=== PATIENT | female | born 2000 | race Caucasian/White ===

== ENCOUNTER 2019-04-25 17:22 | Emergency (ER) | payer BC, OTHER ==
[2019-04-25] MEDS ORDERED: BIRTH CONTROL (17:30)
--- NOTE | 2019-04-25 17:39 | ER Report ---
History and Physical Time Seen By MD: 17:36 Hx. of Stated Complaint: ELEVATED D DIMER. CP SINCE LAST NIGHT. HPI/ROS CHIEF COMPLAINT: chest pain HISTORY OF PRESENT ILLNESS: 19 year old female presents after having an elevated d-dimer today. She was seen by Nanette Adams NP for chest pain earlier toprudence white. Patient reports chest pain started yesterday morning when she was in the shower. She also experienced SOB and dizziness. The chest pain was intermittent throughout the day yesterday. However, she woke up this morning with the chest pain again. Nanette Adams ordered a d-dimer at her office, which was elevated, so she sent the patient to the ED. Patient reports dizziness with standing, but no current shortness of breath. She reports the chest pain is located right side of sternum. REVIEW OF SYSTEMS: Constitutional: No fevers, no appetite changes. Respiratory: Reports dyspnea as noted above. No cough. Cardiovascular: Reports chest pain as noted above. No palpitations. Gastrointestinal: No vomiting, no abdominal pain. Musculoskeletal: No back pain. Neuro: Dizziness upon standing. Allergies: Coded Allergies: shellfish derived (Verified Allergy, Intermediate, NUMBNESS IN FACE , 04/25/19) Home Meds Active Scripts Ketorolac Tromethamine (KETOROLAC TROMETHAMINE) 10 Mg Tab, 10 MG PO Q6H PRN for PAIN, #20 TAB Prov:DOUGLAS BEAR ATIF 04/25/19 Reported Medications [ Control] No Conflict Check 04/25/19 Past Medical/Surgical History No significant past medical or surgical history. Reviewed Nurses Notes: Yes Constitutional Vital Sign - Last 24 Hours 04/25/19 04/25/19 04/25/19 04/25/19 17:28 17:30 17:55 18:30 Temp 98.5 Pulse 109 102 79 Resp 20 B/P (MAP) 126/90 129/93 (105) Pulse Ox 95 95 97 O2 Delivery Room Air 04/25/19 04/25/19 04/25/19 18:45 19:00 19:15 Pulse 83 83 84 Pulse Ox 95 93 94 Physical Exam General Appearance: The patient is alert, has no immediate need for airway protection and no current signs of toxicity. Eyes: Pupils equal and round no injection. Respiratory: on palpation of chest, she has pain along right side of sternum. lungs are clear to auscultation. Cardiac: regular rate and rhythm Gastrointestinal: Abdomen is soft and non tender, no masses, bowel sounds normal. Musculoskeletal: Neck: Neck is supple and non tender. Extremities have full range of motion and are non tender. Skin: No rashes or lesions. DIFFERENTIAL DIAGNOSIS: After history and physical exam differential diagnosis was considered for pulmonary embolism, LA, anxiety, chostocondritis. Medical Decision Making Data Points Laboratory Hematology Test 04/25/19 17:47 Troponin I < 0.012 ng/ml Human Chorionic Gonadotropin, Qual Negative (NEGATIVE) Chemistry Test 04/25/19 17:47 Troponin I < 0.012 ng/ml Human Chorionic Gonadotropin, Qual Negative (NEGATIVE) EKG/Imaging EKG Interpretation 12 lead EKG: Rhythm: normal sinus rhythm with ventricular rate at 92 [place]: normal QRS: normal ST segments: normal Imaging PATIENT NAME: Mary Maher : 2000 MR: [id number] V: [id number] EXAM DATE: ORDERING PHYSICIAN: DOUGLAS BEAR TECHNOLOGIST: Location: [facility] - [place] Patient: Mary Maher : 2000 Visit/Account:[id number] Date of Sevice: 04/25/2019 CT angiogram chest with contrast Indication: Chest pain, shortness breath, elevated d-dimer. Comparison: None available. Technique: Axial CT images are obtained through the chest after administration of 75 mL Isovue 370 IV contrast. Reformatted coronal and sagittal images were reviewed as well as coronal MIP images. One of the following dose optimization techniques was utilized in the performance of this exam: automated exposure control; adjustment of the mA and/or kV according to the patient's size; or use of an iterative reconstruction technique. Specific details can be referenced in the facility's radiology CT exam operational policy. FINDINGS: No evidence of filling defect within the pulmonary vasculature to suggest pulmonary embolus. Heart is normal size without pericardial effusion. Aorta shows no aneurysm or dissection. Mediastinum and hilar regions show no enlarged lymph nodes or abnormal density. Lungs show no consolidation, pleural effusion, pneumothorax, nodule or focal interstitial opacities. Airways are clear. Bony structures show no acute fractures or aggressive bony lesions. Chest wall shows no enlarged axillary lymph nodes or masses. Limited views of the upper abdomen are unremarkable. IMPRESSION: 1. No evidence of pulmonary embolus. 2. No acute cardiothoracic abnormality ED Course/Re-evaluation ED Course Upon arrival to the ED, patient admitted to an exam room, hx and physical obtained, differentials considered. Patient presents after having an elevated d- dimer today. She was seen by Nanette Adams NP for chest pain earlier today. Patient reports chest pain started yesterday morning when she was in the shower. She also experienced SOB and dizziness. The chest pain was intermittent throughout the day yesterday. However, she woke up this morning with the chest pain again. Nanette Adams ordered a d-dimer at her office, which was elevated, so she sent the patient to the ED. Patient reports dizziness with standing, but no current shortness of breath. She reports the chest pain is located right side of sternum. On exam, heart rate and rhythm are normal, lungs are clear. On palpation of chest, she has pain along right side of sternum. IV started. Benadryl given as she is allergic to shellfish. Pulmonary angiogram ordered. EKG and troponin ordered. Nanette Adams ordered a CBC and CMP earlier today which were both normal. 50mg benadryl given for shellfish allergy. 324mg aspirin given. On pulmonary angiogram, no evidence of pulmonary embolus and no acute cardiothoracic abnormality. Discussed with patient regarding normal labs and pulmonary angiogram. Discussed with patient that this is likely a chostochondritis due to the point tenderness on her chest and negative angiogram. Will prescribe 5 days worth of toradol. Patient agrees with plan of care. Decision to Disposition Date: Apr 25, 2019 Decision to Disposition Time: 19:25 Depart Departure Latest Vital Signs Vital Signs Date Time Temp Pulse Resp B/P (MAP) Pulse Ox O2 Delivery O2 Flow Rate FiO2 04/25/19 19:15 84 94 04/25/19 17:55 129/93 (105) 04/25/19 17:28 98.5 20 Room Air Impression: Primary Impression: Costochondritis Condition: Improved Disposition: HOME OR SELF-CARE New Scripts Ketorolac Tromethamine (KETOROLAC TROMETHAMINE) 10 Mg Tab 10 MG PO Q6H PRN for PAIN, #20 TAB Prov: DOUGLAS BEAR 04/25/19 Patient Instructions: Chest Pain (ED) Additional Instructions: Please drink plenty of fluids and get plenty of rest. You may ice the area on your chest that hurts. You may take toradol every 6 hours as needed for pain. Please follow-up with your primary care provider by the end of the week. Return to the ED with any difficulty breathing, increased chest pain, or for any other concerns. DOUGLAS BEAR Apr 25, 2019 17:39
[2019-04-25] MEDS ORDERED: ASPIRIN 81 MG CHEW PO ONE (17:40)
[2019-04-25] MEDS ORDERED: diphenhydrAMINE 50 MG/ML VIAL IVP ONE (17:40)
[2019-04-25] MEDS ORDERED: IOPAMIDOL 76% 100 ML INFUS BTL 100 ML ONE ×2 (17:54→18:19)
--- NOTE | 2019-04-25 17:54 | EKG ---
FACILITY: [facility] PATIENT NAME: LEANDRA BAIRD : [id number] MR: [id number] V: [id number] EXAM DATE: ORDERING PHYSICIAN: DOUGLAS BEAR TECHNOLOGIST: MIKEY Huitron Reason : Blood Pressure : / mmHG Vent. Rate : 092 BPM Atrial Rate : 092 BPM P-R Int : 134 ms QRS Dur : 084 ms QT Int : 346 ms P-R-T Axes : 028 040 019 degrees QTc Int : 427 ms Normal sinus rhythm Normal ECG No previous ECGs available Confirmed by FLAVIO GAVIRIA ([id number]) on 04/26/2019 6:25:10 AM Referred By: Confirmed By:FLAVIO GAVIRIA
[2019-04-25 17:55] VITALS: BP 129/93
[2019-04-25] MEDS ORDERED: NS(*) 0.9% 50 ML BAG 50 ML ONE ×2 (17:55→18:19)
--- NOTE | 2019-04-25 19:16 | RADIOLOGY IMAGING REPORT ---
FACILITY: [facility] - [place] PATIENT NAME: Mary Maher : 2000 MR: [id number] V: [id number] EXAM DATE: ORDERING PHYSICIAN: DOUGLAS BEAR TECHNOLOGIST: Location: Patient: Mary Maher : 2000 Visit/Account:[id number] Date of Sevice: 04/25/2019 CT angiogram chest with contrast Indication: Chest pain, shortness breath, elevated d-dimer. Comparison: None available. Technique: Axial CT images are obtained through the chest after administration of 75 mL Isovue 370 IV contrast. Reformatted coronal and sagittal images were reviewed as well as coronal MIP images. One of the following dose optimization techniques was utilized in the performance of this exam: auto mated exposure control; adjustment of the mA and/or kV according to the patient's size; or use of an iterative reconstruction technique. Specific details can be referenced in the facility's radiology C T exam operational policy. FINDINGS: No evidence of filling defect within the pulmonary vasculature to suggest pulmonary embolus. Heart is normal size without pericardial effusion. Aorta shows no aneurysm or dissection. Mediastin um and hilar regions show no enlarged lymph nodes or abnormal density. Lungs show no consolidation, pleural effusion, pneumothorax, nodule or focal interstitial opacities. Airways are clear. Bony structures show no acute fractures or aggressive bony lesions. Chest wall shows no enlarged axi llary lymph nodes or masses. Limited views of the upper abdomen are unremarkable. IMPRESSION: 1. No evidence of pulmonary embolus. 2. No acute cardiothoracic abnormality Report Dictated By: Kevin oWng at 04/25/2019 7:04 PM Report E-Signed By: Kevin Wong at 04/25/2019 7:11 PM WSN:[id number]
[2019-04-25] MEDS ORDERED: KET10 PO (19:26)
== END 2019-04-25 19:38 | disposition home or self-care (01) ==
LOC: ER 17:30
DX: M94.0 Chondrocostal junction syndrome [Tietze] (principal)
CPT/HCPCS: 71275; 84484; 84703; 93005; 96374; 99284; J1200; J7050; Q9967

== ENCOUNTER → 2019-04-25 | Outpatient (CLI) | payer BC, OTHER ==
[~2019-04-25] MED LIST: BIRTH CONTROL; KET10 PO
[2019-04-25 14:24] LABS: PLATELET COUNT, AUTOMATED 263 K/uL (150-450)
--- NOTE | 2019-04-25 16:58 | RADIOLOGY IMAGING REPORT ---
[place] [facility] [place] NAME: Mary Maher : 2000 MR: [id number] V: [id number] EXAM DATE: ORDERING PHYSICIAN: HERON VALERIO TECHNOLOGIST: Location: [facility] Patient: Mary Maher : 2000 Visit/Account:[id number] Date of Sevice: 04/25/2019 CHEST PA LAT INDICATION: Shortness of breath COMPARISON: None available FINDINGS: Heart size within normal limits. There is no focal infiltrate or lobar consolidation. There is no pneumothorax or pleural effusion. IMPRESSION: 1. No acute cardiopulmonary process. Report Dictated By: Hector Young at 04/25/2019 4:52 PM Report E-Signed By: Hector Young at 04/25/2019 4:53 PM WSN:[id number]
== END ==
LOC: LAB 14:07
PROVIDERS: ATTEND Nurse Practitioner Family
DX: R06.02 Shortness of breath (principal); R06.00 Dyspnea, unspecified; R07.9 Chest pain, unspecified
CPT/HCPCS: 36415; 71046; 85025; 85379